=== PATIENT | male | born 1995 | race African-American/Black ===

== ENCOUNTER 2023-03-17 13:35 | Emergency (ER) | payer OTHER ==
[~2023-03-17] VITALS: Ht 190.5 cm; Wt 72.0 kg
[2023-03-17 14:19] VITALS: BP 107/68
[2023-03-17] MEDS ORDERED: IBUP-1456 PO (14:55)
== END 2023-03-17 15:56 | disposition home or self-care (01) ==
LOC: ER 13:35
DX: S93.402A Sprain of unspecified ligament of left ankle, initial encounter (principal); S93.602A Unspecified sprain of left foot, initial encounter; X50.9XXA Other and unspecified overexertion or strenuous movements or postures, initial encounter; Y93.89 Activity, other specified; Y92.89 Other specified places as the place of occurrence of the external cause; Y99.8 Other external cause status
CPT/HCPCS: 73630